=== PATIENT | male | born 1960 | race Asian ===

== ENCOUNTER → 2018-07-31 | Outpatient (CLI) | payer BC ==
[~2018-07-31] MED LIST: ASPIRIN 81M81 MG/TA2 PO; ATROVENT INHALE14 GM IH; COZAAR100 MG PO; DELSYM30 MG/5 ML PO; DYMISTA1 SPR NS; GLUCOPHAGE500 MG/TAB PO; HCTZ 25MG TAB25 MG PO; WELLBUTRIN 100100 MG PO; ZOCOR 80MG80 MG PO
== END ==
LOC: COL.PUL 07-08 13:00
DX: R05 Cough (principal)

== ENCOUNTER → 2018-08-01 | Outpatient (CLI) | payer BC | LOC: COL.RAD 07:41 | DX: K21.9 Gastro-esophageal reflux disease without esophagitis (principal); J69.0 Pneumonitis due to inhalation of food and vomit; Z86.39 Personal history of other endocrine, nutritional and metabolic disease; Z87.19 Personal history of other diseases of the digestive system | CPT/HCPCS: A9541 ==